=== PATIENT | male | born 1990 | race American Indian/Alaskan Native ===

== ENCOUNTER 2016-09-03 09:11 | Inpatient (IN) | payer MEDICAID, OTHER ==
[2016-09-03 09:15] VITALS: BMI 23.7
[2016-09-03 10:04] LABS: ADD MANUAL DIFF? NO
[2016-09-03 10:09] LABS: BASO # 0.02 K/mm3 (0.0-2.0); BASO % 0.5 % (0.0-3.0); EOS # 0.4 (0.0-0.7); EOS % 9.5 % (1.5-5.0); GRAN # 1.72 (1.4-6.5); GRAN % 46.7 % (50.0-68.0); HEMATOCRIT 45.5 % (42.0-52.0); LYMPH # 1.4 (1.2-3.4); LYMPH % 38.2 % (22.0-35.0); MEAN CELL VOLUME 79.7 fL (80.0-105.0); MEAN CORPUSCULAR HGB CONC 33.8 g/dl (31.0-37.0); MEAN PLATELET VOLUME 10.8 fl (7.0-11.0); MONO # 0.2 (0.1-0.6); MONO % 5.1 % (1.0-6.0); PLATELET COUNT 173 10^3/uL (120.0-450.0); RED CELL DISTRIBUTION WIDTH 14.9 % (11.5-14.5); WHITE BLOOD COUNT 3.7 10^3/ul (4.5-11.0)
[2016-09-03 10:13] LABS: URINE BILIRUBIN NEGATIVE (NEGATIVE); URINE BLOOD TRACE-LYSED (NEGATIVE); URINE GLUCOSE (UA) 500 mg/dL (NEGATIVE); URINE KETONE NEGATIVE (NEGATIVE); URINE LEUKOCYTE ESTERASE NEGATIVE Leu/uL (NEGATIVE); URINE PROTEIN TRACE mg/dL (<30 mg/dL); URINE UROBILINOGEN 0.2 E.U./dL (<1 E.U./dL)
[2016-09-03 10:19] LABS: ALB/GLOB RATIO 1.3 (1.1-1.8); ALKALINE PHOSPHATASE 83 U/L (38-133); ALT/SGPT 34 U/L (7-56); AST/SGOT 27 U/L (15-59); BILIRUBIN,TOTAL 0.7 mg/dL (0.2-1.3); BLOOD UREA NITROGEN 13 mg/dL (7-21); CALCIUM 9.3 mg/dL (8.4-10.5); CARBON DIOXIDE 20 mmol/L (21-33); CHLORIDE 103 mmol/L (98-107); GFR AFRICAN-AMERICAN > 60; GLUCOSE,RANDOM 243 mg/dL (70-110); POTASSIUM 5.4 mmol/L (3.6-5.0); SODIUM 135 mmol/L (132-148); TOTAL PROTEIN 7.8 g/dL (5.8-8.3)
[2016-09-03 10:22] LABS: URINE APPEARANCE CLEAR (CLEAR); URINE COLOR YELLOW (YELLOW)
[2016-09-03 10:26] LABS: URINE BACTERIA FEW (NEG); URINE EPITHELIAL CELLS 0 - 2 /hpf (0-5); URINE RBC 0 - 2 /hpf (0-2); URINE WBC 0 - 2 /hpf (0-6)
--- NOTE | 2016-09-03 10:32 | ED PDOC ---
Arrival/HPI - General Chief Complaint: Seizure Time Seen by Provider: 09/03/16 09:18 Historian: Patient - History of Present Illness Narrative History of Present Illness (Text): 09/03/16 09:20 A 26 year old male, whose past medical history includes asthma and migraine, is brought into the emergency department via EMS after a wittiness seizure. Patient is accompanied by girlfriend who witness the seizure. She states this morning the patient was sleeping woke up to use his inhaler for asthma and than went back to bed. She states about an hour later the patient looked as though he was stretching but then began to convulse and started to foam from the mouth. He then started snoring and was unresponsive. Patient had urinary incontinence but no tongue biting. About 10 minutes after the episodes EMS arrived and where able to arouse to the patient but patient was confused. Currently the patient is at baseline. He states he does smoke marijuana and his last use was yesterday. He denies any other type of drug use. Patient does not have a family history of seizure. He denies any fever, congestion, or any other complaints at this time. PMD: from [place] Time/Duration: 1-3 hours Symptom Onset: Sudden Symptom Course: Resolved Quality: Other Activities at Onset: Rest Context: Home Past Medical History - Provider Review Nursing Documentation Reviewed: Yes - Infectious Disease Hx of Infectious Diseases: None - Cardiac Hx Cardiac Disorders: No - Pulmonary Hx Respiratory Disorders: Yes Hx Asthma: Yes - Neurological Hx Neurological Disorder: No - HEENT Hx HEENT Disorder: No - Renal Hx Renal Disorder: No - Endocrine/Metabolic Hx Endocrine Disorders: No - Hematological/Oncological Hx Blood Disorders: Yes Hx Anemia: Yes - Integumentary Hx Dermatological Disorder: No - Musculoskeletal/Rheumatological Hx Musculoskeletal Disorders: No - Gastrointestinal Hx Gastrointestinal Disorders: No - Genitourinary/Gynecological Hx Genitourinary Disorders: No - Psychiatric Hx Psychophysiologic Disorder: No Hx Substance Use: Yes (weed) - Anesthesia Hx Anesthesia: No Family/Social History - Physician Review Nursing Documentation Reviewed: Yes Family/Social History: Unknown Family HX Smoking Status: Never Smoked Hx Alcohol Use: Yes Frequency of alcohol use: Socially Hx Substance Use: Yes (weed) Allergies/Home Meds Allergies/Adverse Reactions: Allergies nuts Allergy (Uncoded 09/03/16 09:15) ANAPHYLAXIS seafood Allergy (Uncoded 09/03/16 09:15) ANAPHYLAXIS Home Medications: Home Meds Medication Instructions Recorded Confirmed Albuterol 0.042% [Albuterol 0.042% 3 ml IH PRN PRN 09/03/16 09/03/16 Inhal Ashley (1.25mg/3ml) UD] Review of Systems - Physician Review All systems were reviewed & negative as marked: Yes - Review of Systems Constitutional: absent: Fevers ENT: absent: Sinus Congestion, Other (toungue bitting) Genitourinary Male: Other (urinary incontinence ) Neurological: Seizure Physical Exam Vital Signs Reviewed: Yes Vital Signs Temp Pulse Resp BP Pulse Ox 09/03/16 10:40 66 18 120/66 100 09/03/16 09:28 97.4 F L 76 18 115/66 100 Temperature: Afebrile Blood Pressure: Normal Pulse: Regular Respiratory Rate: Normal Appearance: Positive for: Well-Appearing, Non-Toxic, Comfortable Pain Distress: None Mental Status: Positive for: Alert and Oriented X 3 Finger Stick Blood Glucose: 251 - Systems Exam Head: Present: Atraumatic, Normocephalic Pupils: Present: PERRL Extroacular Muscles: Present: EOMI Conjunctiva: Present: Normal Mouth: Present: Moist Mucous Membranes, Normal Tounge Neck: Present: Normal Range of Motion Respiratory/Chest: Present: Clear to Auscultation, Good Air Exchange. No: Respiratory Distress, Accessory Muscle Use Cardiovascular: Present: Regular Rate and Rhythm, Normal S1, S2. No: Murmurs Abdomen: Present: Normal Bowel Sounds. No: Tenderness, Distention, Peritoneal Signs Back: Present: Normal Inspection Upper Extremity: Present: Normal Inspection. No: Cyanosis, Edema Lower Extremity: Present: Normal Inspection. No: Edema Neurological: Present: GCS=15, CN II-XII Intact, Speech Normal, Motor Func Grossly Intact, Normal Sensory Function, Normal Cerebellar Funct Skin: Present: Warm, Dry, Normal Color. No: Rashes Psychiatric: Present: Alert, Oriented x 3, Normal Insight, Normal Concentration Medical Decision Making ED Course and Treatment: 09/03/16 09:20 Impression: A 26 year old male with a seizure. Differential Diagnosis include but are not limited to: new onset seizure secondary to intracranial pathology vs. electrolyte imbalance vs. drug induced Plan: -- EKG -- Head CT -- Labs -- Urinalysis -- Reassess and disposition Progress Notes: EKG: Ordered, reviewed, and independently interpreted the EKG. Rate : 85 BPM Rhythm : NSR Interpretation : early repolarization Comparison : No previous EKG for comparison. 09/03/16 10:[address]: Creator : Seng Mejia MD COMPARISON: None available. FINDINGS: HEMORRHAGE: No intracranial hemorrhage. BRAIN: No mass effect or edema. No atrophy or chronic microvascular ischemic changes. VENTRICLES: Unremarkable. No hydrocephalus. CALVARIUM: Unremarkable. PARANASAL SINUSES: Unremarkable as visualized. No significant inflammatory changes MASTOID AIR CELLS: Unremarkable as visualized. No inflammatory changes. OTHER FINDINGS: None. IMPRESSION: Normal CT of the Head. 09/03/16 11:20 Potassium elevated. Called lab who states it's not hemolyzed. Treated with kayexalate. Case discussed with Dr. Lazarus Hernandez who recommended placing patient on observation and will need an EEG. CT Head negative. Case discussed with Dr. Okeefe, who is covering Hospitalist service, who will place under the service to Med Surg. - Lab Interpretations Lab Results: 09/03/16 10:03 09/03/16 10:03 Lab Results 09/03/16 10:09: Urine Opiates Screen Negative, Urine Methadone Screen Negative, Ur Barbiturates Screen Negative, Ur Phencyclidine Scrn Negative, Ur Amphetamines Screen Negative, U Benzodiazepines Scrn Negative, U Oth Cocaine Metabols Negative, U Cannabinoids Screen Positive H 09/03/16 10:09: Urine Color Yellow, Urine Appearance Clear, Urine pH 6.0, Ur Specific Tilly 1.025, Urine Protein Trace H, Urine Glucose (UA) 500 H, Urine Ketones Negative, Urine Blood Trace-lysed H, Urine Nitrate Negative, Urine Bilirubin Negative, Urine Urobilinogen 0.2, Ur Leukocyte Esterase Negative, Urine RBC 0 - 2, Urine WBC 0 - 2, Ur Epithelial Cells 0 - 2, Urine Bacteria Few 09/03/16 10:03: Alcohol, Quantitative < 10 09/03/16 10:03: Sodium 135, Potassium 5.4 H, Chloride 103, Carbon Dioxide 20 L, Anion Gap 17, BUN 13, Creatinine 1.0, Est GFR ( Amer) > 60, Est GFR (Non- Af Amer) > 60, Random Glucose 243 H, Calcium 9.3, Total Bilirubin 0.7, AST 27, ALT 34, Alkaline Phosphatase 83, Total Protein 7.8, Albumin 4.4, Globulin 3.5, Albumin/Globulin Ratio 1.3 09/03/16 10:03: WBC 3.7 L, RBC 5.71, Hgb 15.4, Hct 45.5, MCV 79.7 L, MCH 27.0, MCHC 33.8, RDW 14.9 H, Plt Count 173, MPV 10.8, Gran % 46.7 L, Lymph % (Auto) 38.2 H, [place]rick % (Auto) 5.1, Eos % (Auto) 9.5 H, Baso % (Auto) 0.5, Gran # 1.72, Lymph # 1.4, Merrick # 0.2, Eos # 0.4, Baso # 0.02 I have reviewed the lab results: Yes - RAD Interpretation Radiology Orders: 09/03/16 09:48 HEAD W/O CONTRAST [CT] Stat - Medication Orders Current Medication Orders: Discontinued Medications Sodium Polystyrene Sulfonate (Kayexalate Oral Susp) 15 gm PO STAT STA Stop: 09/03/16 10:55 Last Admin: 09/03/16 11:20 Dose: 15 gm - Scribe Statement The provider has reviewed the documentation as recorded by the Patricia Jay Provider Letiibe Attestation: All medical record entries made by the Patricia were at my direction and personally dictated by me. I have reviewed the chart and agree that the record accurately reflects my personal performance of the history, physical exam, medical decision making, and the department course for this patient. I have also personally directed, reviewed, and agree with the discharge instructions and disposition. Disposition/Present on Arrival - Present on Arrival Any Indicators Present on Arrival: No History of DVT/PE: No History of Uncontrolled Diabetes: No Urinary Catheter: No History of Decub. Ulcer: No History Surgical Site Infection Following: None - Disposition Have Diagnosis and Disposition been Completed?: Yes Diagnosis: New onset seizure Disposition Time: 11:23 Patient Plan: Admission Condition: FAIR
--- NOTE | 2016-09-03 10:40 | CT ---
PROCEDURE: CT HEAD WITHOUT CONTRAST. HISTORY: new onset sz COMPARISON: None available. TECHNIQUE: Axial computed tomography images were obtained through the head/brain without intravenous contrast. Radiation dose: Total exam DLP = 774 mGy-cm. This CT exam was performed using one or more of the following dose reduction techniques: Automated exposure control, adjustment of the mA and/or kV according to patient size, and/or use of iterative reconstruction technique. FINDINGS: HEMORRHAGE: No intracranial hemorrhage. BRAIN: No mass effect or edema. No atrophy or chronic microvascular ischemic changes. VENTRICLES: Unremarkable. No hydrocephalus. CALVARIUM: Unremarkable. PARANASAL SINUSES: Unremarkable as visualized. No significant inflammatory changes. MASTOID AIR CELLS: Unremarkable as visualized. No inflammatory changes. OTHER FINDINGS: None. IMPRESSION: Normal CT of the Head.
[2016-09-03] MEDS ORDERED: Sod Polystyrene Sulf 15 gm/60 ml Oral Susp PO STA (10:54)
[2016-09-03] MEDS ORDERED: Albuterol 0.042% Inhal Sol (1.25 mg/3 mL) UD IH PRN (12:10)
[2016-09-03 17:12] VITALS: O2SAT 98
--- NOTE | 2016-09-03 18:00 | CON ---
DATE: 09/03/2016 CHIEF COMPLAINT: Seizure. HISTORY OF PRESENT ILLNESS: This is a 26-year-old man with a past medical history of asthma and migr aines who was brought to the hospital for a witnessed seizure by the girlfriend. She stated in the m orning he was sleeping, he woke and looked like he was stretching but he began to convulse and foam at his mouth and had urinary incontinence. No history of meningitis, no history of trauma to th e brain. He said he has been sleep deprived for the past few weeks due to his community service. He does smoke marijuana, which is positive on his U-tox. Currently, no acute events , moving all extremities. PAST MEDICAL HISTORY: Asthma, migraines. REVIEW OF SYSTEMS: A 14-point review of systems is negative except for the HPI. MEDICATIONS: Reviewed via nurses' reconciliation sheet. SOCIAL HISTORY: He smokes marijuana. No ETOH abuse or cigarette smoking. FAMILY HISTORY: Noncontributory. ALLERGIES: ALLERGIC TO NUTS AND SEAFOOD. PHYSICAL EXAMINATION: VITAL SIGNS: Temperature 98.4, pulse rate 64, blood pressure 121/60, respiratory rate 18, oxygen sat uration of 100% on room air. GENERAL: The patient is sitting up in bed in no acute distress. HEENT: Atraumatic, normocephalic. PERRLA. Extraocular muscles intact. NECK: Supple, no JVD, no adenopathy noted. HEART: S1, S2, normal rate and rhythm. No murmurs, rubs, or gallops. ABDOMEN: Soft, nontender, nondistended. Bowel sounds are present. EXTREMITIES: No clubbing, no cyanosis. Peripheral pulses 2+ bilaterally. NEUROLOGIC: The patient is alert, oriented to person, place, month and year. Speech is fluent, with out any errors. Cranial nerves II through XII are intact. MOTOR: Moves all extremities equally. Toes downgoing bilaterally. SENSORY: Light touch, pinprick, proprioception, vibration intact. GAIT: Normal. LABORATORIES: Sodium 135, potassium 5.4, chloride 103, carbon dioxide 20, BUN of 13, creatinine 1. Random glucose 243. ASSESSMENT AND PLAN: This is a 26-year-old man with a history of migraines and a history of asthma w ho had a new onset seizure. His new onset seizure is likely secondary to sleep deprivation rather __ ___. A CAT scan of the head showed no acute intracranial abnormality. At this time, recommend an EE G and MRI of the brain with contrast to assess for any structural abnormalities. Would avoid any AED s at this point and continue with current present medical management. If the MRI of the brain is neg ative and EEG is normal, can follow up as an outpatient. Thank you for this consult. Jay Hernandez MD cc: [id number] TT: 09/03/2016 18:00:09 Confirmation # [id number] Dictation # [id number]
--- NOTE | 2016-09-03 18:49 | CARD ---
APPROVED REPORT EKG Measurement Heart [id number] <Conclusion> Normal sinus rhythm Right atrial enlargement Early repolarization Borderline ECG
--- NOTE | 2016-09-03 21:23 | CP.PCM.HP ---
<Nancy Llamas - Last Filed: 09/03/16 21:53> History of Present Illness - History of Present Illness History of Present Illness: 26 yo M w/ PMHx of asthma and chronic headaches, presents w/witnessed seizure. Girlfriend at bedside reports pt sleeping in bed in morning, when started extending arm, diaphoresis and full body convulsion and foaming at mouth. Patient had urinary incontinence but no tongue biting. Then started snoring and was unresponsive. Ten minutes later, EMS arouse the patient but patient was confused. At current presentation, pt is not confused. He states he does smoke marijuana and smoked last PM. Reports that this is his first seizure episode. Pt denies n/v, numbness, tingling, fever, recent travel. PMHx: asthma and chronic headaches surgeries: denies allergies: NKDA medications: daily use of ventolin social: report social etoh, [facility]. Denies cigarette smoking. denies any other type of drug use. fx: denies seizure hx in fx Present on Admission - Present on Admission Any Indicators Present on Admission: No Review of Systems - Review of Systems All systems: reviewed and no additional remarkable complaints except - Constitutional Constitutional: absent: Chills, Fever - Cardiovascular Cardiovascular: Diaphoresis. absent: Chest Pain - Gastrointestinal Gastrointestinal: absent: Abdominal Pain, Vomiting - Genitourinary Genitourinary: absent: Hematuria, Pyuria Past Patient History - Infectious Disease Hx of Infectious Diseases: None - Past Social History Smoking Status: Never Smoked - CARDIAC Hx Cardiac Disorders: No - PULMONARY Hx Respiratory Disorders: Yes Hx Asthma: Yes - NEUROLOGICAL Hx Neurological Disorder: No - HEENT Hx HEENT Problems: No - RENAL Hx Chronic Kidney Disease: No - ENDOCRINE/METABOLIC Hx Endocrine Disorders: No - HEMATOLOGICAL/ONCOLOGICAL Hx Blood Disorders: Yes Hx Anemia: Yes - INTEGUMENTARY Hx Dermatological Problems: No - MUSCULOSKELETAL/RHEUMATOLOGICAL Hx Falls: No - GASTROINTESTINAL Hx Gastrointestinal Disorders: No - GENITOURINARY/GYNECOLOGICAL Hx Genitourinary Disorders: No - PSYCHIATRIC Hx Psychophysiologic Disorder: No - SURGICAL HISTORY Hx Surgeries: No - ANESTHESIA Hx Anesthesia: No Meds Allergies/Adverse Reactions: Allergies Allergy/AdvReac Type Severity Reaction Status Date / Time nuts Allergy ANAPHYLAXIS Uncoded 09/03/16 09:15 seafood Allergy ANAPHYLAXIS Uncoded 09/03/16 09:15 Physical Exam - Constitutional Appears: Non-toxic, No Acute Distress - Head Exam Head Exam: ATRAUMATIC, NORMOCEPHALIC - Eye Exam Eye Exam: EOMI, Normal appearance - ENT Exam ENT Exam: Mucous Membranes Moist, Normal Exam - Respiratory Exam Respiratory Exam: Clear to Auscultation Bilateral, NORMAL BREATHING PATTERN - Cardiovascular Exam Cardiovascular Exam: +S1, +S2. absent: Tachycardia - Exam External exam: absent: Ecchymosis, Erythema - Extremities Exam Extremities exam: Positive for: normal capillary refill, pedal pulses present - Back Exam Back exam: absent: CVA tenderness (L), CVA tenderness (R) - Neurological Exam Neurological exam: Alert, CN II-XII Intact, Oriented x3 - Expanded Neurological Exam Expanded Upper motor neuron: Babinski Sign: Normal Neuro motor strength exam: Left Upper Extremity: 5, Right Upper Extremity: 5, Left Lower Extremity: 5, Right Lower Extremity: 5 - Skin Skin Exam: Normal Color, Warm Results - Vital Signs Recent Vital Signs: Last Vital Signs Temp 98 F 09/03/16 17:11 Pulse 66 09/03/16 17:11 Resp 18 09/03/16 17:11 BP 131/74 09/03/16 17:11 Pulse Ox 98 09/03/16 17:11 - Labs Result Diagrams: 09/03/16 10:03 09/03/16 10:03 Labs: Laboratory Results - last 24 hr 09/03/16 09/03/16 12:30 12:30 ESR 3 C-React Prot High Sens > 15.00 H Assessment & Plan - Assessment and Plan (Free Text) Plan: 26 yo M w/ PMHx of asthma and chronic headaches, presents w/witnessed seizure. New onset seizure: Head CT negative Neurology consult, help appreciated EEG, and MRI w/and w/o contrast ordered vitals q6, neuro checks q4, fall and aspiration precautions Ucx, Bcx ordered Hyperkalemia: initially 5.4 kayexalate 15 given in ED Monitor PPx: scd <Julian Okeefe - Last Filed: 09/04/16 18:04> Results - Vital Signs Recent Vital Signs: Last Vital Signs Temp 98.1 F 09/04/16 08:00 Pulse 70 09/04/16 08:00 Resp 16 09/04/16 08:00 BP 108/58 L 09/04/16 08:00 Pulse Ox 98 09/04/16 08:00 - Labs Result Diagrams: 09/04/16 07:00 09/04/16 07:00 Labs: Laboratory Results - last 24 hr 09/04/16 09/04/16 07:00 07:00 WBC 6.6 D RBC 5.59 Hgb 14.9 Hct 43.6 MCV 78.0 L MCH 26.7 MCHC 34.2 RDW 14.8 H Plt Count 176 MPV 10.0 Gran % 77.3 H Lymph % (Auto) 16.0 L [place] % (Auto) 5.6 Eos % (Auto) 0.9 L Baso % (Auto) 0.2 Gran # 5.09 Lymph # 1.1 L [place] # 0.4 Eos # 0.1 Baso # 0.01 Sodium 137 Potassium 3.8 Chloride 104 Carbon Dioxide 27 Anion Gap 10 BUN 9 Creatinine 0.8 Est GFR ( Amer) > 60 Est GFR (Non-Af Amer) > 60 Random Glucose 94 Calcium 8.9 Total Bilirubin 1.0 AST 31 ALT 35 Alkaline Phosphatase 79 Total Protein 8.0 Albumin 4.2 Globulin 3.8 Albumin/Globulin Ratio 1.1 Attending/Attestation - Attestation I have personally seen and examined this patient.: Yes I have fully participated in the care of the patient.: Yes I have reviewed all pertinent clinical information: Yes Notes (Text): 09/04/16 18:03 Patient seen and examined in ED with the resident. Witnessed seizure episode by the . Vitals, labs, Radiology report and ED notes report. Maintain seizure precautions, fall precautions. Neurology consult. Agree with the plan of care outlined by the resident.
[2016-09-04 07:59] LABS: ADD MANUAL DIFF? NO
[2016-09-04 08:03] LABS: BASO # 0.01 K/mm3 (0.0-2.0); BASO % 0.2 % (0.0-3.0); EOS # 0.1 (0.0-0.7); EOS % 0.9 % (1.5-5.0); GRAN # 5.09 (1.4-6.5); GRAN % 77.3 % (50.0-68.0); HEMATOCRIT 43.6 % (42.0-52.0); LYMPH # 1.1 (1.2-3.4); MEAN CORPUSCULAR HEMOGLOBIN 26.7 pg (25.0-35.0); MEAN CORPUSCULAR HGB CONC 34.2 g/dl (31.0-37.0); MONO # 0.4 (0.1-0.6); MONO % 5.6 % (1.0-6.0); PLATELET COUNT 176 10^3/uL (120.0-450.0); RED CELL DISTRIBUTION WIDTH 14.8 % (11.5-14.5); WHITE BLOOD COUNT 6.6 10^3/ul (4.5-11.0)
[2016-09-04 08:12] LABS: ALB/GLOB RATIO 1.1 (1.1-1.8); ALKALINE PHOSPHATASE 79 U/L (38-133); ALT/SGPT 35 U/L (7-56); AST/SGOT 31 U/L (15-59); BLOOD UREA NITROGEN 9 mg/dL (7-21); CALCIUM 8.9 mg/dL (8.4-10.5); CARBON DIOXIDE 27 mmol/L (21-33); CHLORIDE 104 mmol/L (98-107); GFR AFRICAN-AMERICAN > 60; GLUCOSE,RANDOM 94 mg/dL (70-110); POTASSIUM 3.8 mmol/L (3.6-5.0); SODIUM 137 mmol/L (132-148)
[2016-09-04 09:05] VITALS: BP 108/58; PULSE 70; RESP 16; TEMP 98.1
[2016-09-04] MEDS ORDERED: Gadodiamide 287 MG/ML VIAL (15ML) IV ONE (13:15)
--- NOTE | 2016-09-04 14:16 | MRI ---
PROCEDURE: MRI BRAIN WITH AND WITHOUT CONTRAST HISTORY: New onset seizures COMPARISON: Noncontrast head CT from 09/03/2016 TECHNIQUE: Multiplanar, multisequence MR images of the brain were obtained with and without intravenous contrast enhancement. 15 mL gadolinium was injected intravenously. FINDINGS: HEMORRHAGE: None DWI: No evidence of an acute or early subacute infarction. BRAIN PARENCHYMA: Bowles-white matter differentiation is preserved. There is no mass, mass effect or abnormal extra-axial fluid collection ENHANCEMENT: No abnormal intracranial enhancement. VENTRICLES: The ventricles are normal in size, shape and configuration. CRANIUM: There is normal bone marrow signal pattern. ORBITS: Grossly unremarkable. PARANASAL SINUSES/MASTOIDS: There is mild mucosal thickening in the left frontal sinus and ethmoid air cells. The remaining included paranasal sinuses and mastoid air cells are predominantly clear. VASCULAR SYSTEM: There are normal signal voids in the larger intracranial arteries. OTHER FINDINGS: None . IMPRESSION: No acute intracranial abnormality. Essentially normal MRI of the brain without and with intravenous contrast.
--- NOTE | 2016-09-04 19:19 | CP.PCM.DIS ---
<Braxton Palacio - Last Filed: 09/04/16 19:39> Provider - Provider Date of Admission: 09/03/16 11:02 Attending physician: Josesito Araujo MD Primary care physician: Demetrio Profile Required Consults: Neuro: Dr. Lazarus Hernandez Time Spent in preparation of Discharge (in minutes): 30 Diagnosis - Discharge Diagnosis (1) New onset seizure Status: Acute Priority: High Hospital Course - Lab Results Lab Results: Micro Results 09/03/16 12:44 Blood Blood Culture - Preliminary NO GROWTH AFTER 24 HOURS Most Recent Lab Values WBC 6.6 10^3/ul (4.5-11.0) D 09/04/16 07:00 RBC 5.59 10^6/uL (3.5-6.1) 09/04/16 07:00 Hgb 14.9 gm/dL (14.0-18.0) 09/04/16 07:00 Hct 43.6 % (42.0-52.0) 09/04/16 07:00 MCV 78.0 fL (80.0-105.0) L 09/04/16 07:00 MCH 26.7 pg (25.0-35.0) 09/04/16 07:00 MCHC 34.2 g/dl (31.0-37.0) 09/04/16 07:00 RDW 14.8 % (11.5-14.5) H 09/04/16 07:00 Plt Count 176 10^3/uL (120.0-450.0) 09/04/16 07:00 MPV 10.0 fl (7.0-11.0) 09/04/16 07:00 Gran % 77.3 % (50.0-68.0) H 09/04/16 07:00 Lymph % (Auto) 16.0 % (22.0-35.0) L 09/04/16 07:00 Payette % (Auto) 5.6 % (1.0-6.0) 09/04/16 07:00 Eos % (Auto) 0.9 % (1.5-5.0) L 09/04/16 07:00 Baso % (Auto) 0.2 % (0.0-3.0) 09/04/16 07:00 Gran # 5.09 (1.4-6.5) 09/04/16 07:00 Lymph # 1.1 (1.2-3.4) L 09/04/16 07:00 Payette # 0.4 (0.1-0.6) 09/04/16 07:00 Eos # 0.1 (0.0-0.7) 09/04/16 07:00 Baso # 0.01 K/mm3 (0.0-2.0) 09/04/16 07:00 ESR 3 mm/hr (0.0-15.0) 09/03/16 12:30 Sodium 137 mmol/L (132-148) 09/04/16 07:00 Potassium 3.8 mmol/L (3.6-5.0) 09/04/16 07:00 Chloride 104 mmol/L (98-107) 09/04/16 07:00 Carbon Dioxide 27 mmol/L (21-33) 09/04/16 07:00 Anion Gap 10 (10-20) 09/04/16 07:00 BUN 9 mg/dL (7-21) 09/04/16 07:00 Creatinine 0.8 mg/dL (0.5-1.4) 09/04/16 07:00 Est GFR ( Amer) > 60 09/04/16 07:00 Est GFR (Non-Af Amer) > 60 09/04/16 07:00 Random Glucose 94 mg/dL (70-110) 09/04/16 07:00 Calcium 8.9 mg/dL (8.4-10.5) 09/04/16 07:00 Total Bilirubin 1.0 mg/dL (0.2-1.3) 09/04/16 07:00 AST 31 U/L (15-59) 09/04/16 07:00 ALT 35 U/L (7-56) 09/04/16 07:00 Alkaline Phosphatase 79 U/L (38-133) 09/04/16 07:00 C-React Prot High Sens > 15.00 mg/L (1.00-3.00) H 09/03/16 12:30 Total Protein 8.0 g/dL (5.8-8.3) 09/04/16 07:00 Albumin 4.2 g/dL (3.0-4.8) 09/04/16 07:00 Globulin 3.8 gm/dL 09/04/16 07:00 Albumin/Globulin Ratio 1.1 (1.1-1.8) 09/04/16 07:00 Urine Color Yellow (YELLOW) 09/03/16 10:09 Urine Appearance Clear (CLEAR) 09/03/16 10:09 Urine pH 6.0 (4.7-8.0) 09/03/16 10:09 Ur Specific Wayne 1.025 (1.005-1.035) 09/03/16 10:09 Urine Protein Trace mg/dL (<30 mg/dL) H 09/03/16 10:09 Urine Glucose (UA) 500 mg/dL (NEGATIVE) H 09/03/16 10:09 Urine Ketones Negative mg/dL (NEGATIVE) 09/03/16 10:09 Urine Blood Trace-lysed (NEGATIVE) H 09/03/16 10:09 Urine Nitrate Negative (NEGATIVE) 09/03/16 10:09 Urine Bilirubin Negative (NEGATIVE) 09/03/16 10:09 Urine Urobilinogen 0.2 E.U./dL (<1 E.U./dL) 09/03/16 10:09 Ur Leukocyte Esterase Negative Laya/uL (NEGATIVE) 09/03/16 10:09 Urine RBC 0 - 2 /hpf (0-2) 09/03/16 10:09 Urine WBC 0 - 2 /hpf (0-6) 09/03/16 10:09 Ur Epithelial Cells 0 - 2 /hpf (0-5) 09/03/16 10:09 Urine Bacteria Few (NEG) 09/03/16 10:09 Urine Opiates Screen Negative (NEGATIVE) 09/03/16 10:09 Urine Methadone Screen Negative (NEGATIVE) 09/03/16 10:09 Ur Barbiturates Screen Negative (NEGATIVE) 09/03/16 10:09 Ur Phencyclidine Scrn Negative (NEGATIVE) 09/03/16 10:09 Ur Amphetamines Screen Negative (NEGATIVE) 09/03/16 10:09 U Benzodiazepines Scrn Negative (NEGATIVE) 09/03/16 10:09 U Oth Cocaine Metabols Negative (NEGATIVE) 09/03/16 10:09 U Cannabinoids Screen Positive (NEGATIVE) H 09/03/16 10:09 Alcohol, Quantitative < 10 mg/dL (0-10) 09/03/16 10:03 - Hospital Course Hospital Course: This is a 26 yo AA M with PMH of Asthma, Eczema, and headache who was brought in by ambulance to [facility] after first occurrence seizure at home witnessed by significant other. During this admission, patient remained stable, and did not exhibit any more seizure or seizure-like activity. He first remembered regaining consciousness in the ambulance on the way to the hospital, and had excellent recall since that time. During this admission, patient was seen by Neurology. Due to his normal head CT, brain MRI, and EEG, patient was cleared for discharge by Neuro and instructed to follow up with Neurology within 1 week of discharge. No additional medications or scripts were indicated by Neuro. 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 He was also instructed to avoid further marijuana use. Patient expressed understanding and agreement with these instructions. He was then given an opportunity to ask any questions, which were answered to his satisfaction. He was then discharged. - Date & Time of H&P Date of H&P: 09/03/16 Time of H&P: 21:22 Discharge Exam - Head Exam Head Exam: ATRAUMATIC, NORMAL INSPECTION, NORMOCEPHALIC - Eye Exam Eye Exam: EOMI, Normal appearance. absent: Conjunctival injection, Scleral icterus Pupil Exam: absent: Irregular, Unequal - ENT Exam ENT Exam: Mucous Membranes Moist - Neck Exam Neck exam: Full Rom - Respiratory Exam Respiratory Exam: Clear to PA & Lateral, NORMAL BREATHING PATTERN, UNREMARKABLE. absent: Accessory Muscle Use, Chest Wall Tenderness, Decreased Breath Sounds, Prolonged Expiratory Phase, Rales, Rhonchi, Wheezes, Respiratory Distress - Cardiovascular Exam Cardiovascular Exam: REGULAR RHYTHM, RRR, +S1, +S2. absent: Bradycardia, Tachycardia, Irregular Rhythm, JVD, +S4 - GI/Abdominal Exam GI & Abdominal Exam: Normal Bowel Sounds, Soft, Unremarkable. absent: Diminished Bowel Sounds, Distended, Firm, Hyperactive Bowel Sounds, Hypoactive Bowel Sounds, Rigid, Tenderness - Extremities Exam Extremities exam: normal capillary refill, normal inspection, pedal pulses present - Neurological Exam Neurological exam: Alert, Normal Gait, Oriented x3 - Psychiatric Exam Psychiatric exam: Normal Affect, Normal Mood - Skin Skin Exam: Dry, Intact, Normal Color, Warm Discharge Plan - Follow Up Plan Condition: FAIR Disposition: HOME/ ROUTINE Instructions: Recurrent Seizures in Adults (DC), New-Onset Seizure in Adults ( DC), Fall Prevention (DC) Additional Instructions: You have been discharged from [facility] If you have any further episodes of seizures please go to the nearest emergency room as soon as possible. 1. You are not able to drive for 90 days or until cleared by Neurology. 2. You will have to follow up with Dr Hernandez within 1 weeks time. 3. [facility] clinic f/u 1 week . Referrals: Jay Hernandez MD [Staff Provider] - <Josesito Araujo - Last Filed: 09/05/16 06:53> Provider - Provider Date of Admission: 09/03/16 11:02 Attending physician: Josesito Araujo MD Primary care physician: Demetrio Cervantes Required Time Spent in preparation of Discharge (in minutes): 35 Hospital Course - Lab Results Lab Results: Micro Results 09/03/16 12:44 Blood Blood Culture - Preliminary NO GROWTH AFTER 24 HOURS Most Recent Lab Values WBC 6.6 10^3/ul (4.5-11.0) D 09/04/16 07:00 RBC 5.59 10^6/uL (3.5-6.1) 09/04/16 07:00 Hgb 14.9 gm/dL (14.0-18.0) 09/04/16 07:00 Hct 43.6 % (42.0-52.0) 09/04/16 07:00 MCV 78.0 fL (80.0-105.0) L 09/04/16 07:00 MCH 26.7 pg (25.0-35.0) 09/04/16 07:00 MCHC 34.2 g/dl (31.0-37.0) 09/04/16 07:00 RDW 14.8 % (11.5-14.5) H 09/04/16 07:00 Plt Count 176 10^3/uL (120.0-450.0) 09/04/16 07:00 MPV 10.0 fl (7.0-11.0) 09/04/16 07:00 Gran % 77.3 % (50.0-68.0) H 09/04/16 07:00 Lymph % (Auto) 16.0 % (22.0-35.0) L 09/04/16 07:00 Payette % (Auto) 5.6 % (1.0-6.0) 09/04/16 07:00 Eos % (Auto) 0.9 % (1.5-5.0) L 09/04/16 07:00 Baso % (Auto) 0.2 % (0.0-3.0) 09/04/16 07:00 Gran # 5.09 (1.4-6.5) 09/04/16 07:00 Lymph # 1.1 (1.2-3.4) L 09/04/16 07:00 Payette # 0.4 (0.1-0.6) 09/04/16 07:00 Eos # 0.1 (0.0-0.7) 09/04/16 07:00 Baso # 0.01 K/mm3 (0.0-2.0) 09/04/16 07:00 ESR 3 mm/hr (0.0-15.0) 09/03/16 12:30 Sodium 137 mmol/L (132-148) 09/04/16 07:00 Potassium 3.8 mmol/L (3.6-5.0) 09/04/16 07:00 Chloride 104 mmol/L (98-107) 09/04/16 07:00 Carbon Dioxide 27 mmol/L (21-33) 09/04/16 07:00 Anion Gap 10 (10-20) 09/04/16 07:00 BUN 9 mg/dL (7-21) 09/04/16 07:00 Creatinine 0.8 mg/dL (0.5-1.4) 09/04/16 07:00 Est GFR ( Amer) > 60 09/04/16 07:00 Est GFR (Non-Af Amer) > 60 09/04/16 07:00 Random Glucose 94 mg/dL (70-110) 09/04/16 07:00 Calcium 8.9 mg/dL (8.4-10.5) 09/04/16 07:00 Total Bilirubin 1.0 mg/dL (0.2-1.3) 09/04/16 07:00 AST 31 U/L (15-59) 09/04/16 07:00 ALT 35 U/L (7-56) 09/04/16 07:00 Alkaline Phosphatase 79 U/L (38-133) 09/04/16 07:00 C-React Prot High Sens > 15.00 mg/L (1.00-3.00) H 09/03/16 12:30 Total Protein 8.0 g/dL (5.8-8.3) 09/04/16 07:00 Albumin 4.2 g/dL (3.0-4.8) 09/04/16 07:00 Globulin 3.8 gm/dL 09/04/16 07:00 Albumin/Globulin Ratio 1.1 (1.1-1.8) 09/04/16 07:00 Urine Color Yellow (YELLOW) 09/03/16 10:09 Urine Appearance Clear (CLEAR) 09/03/16 10:09 Urine pH 6.0 (4.7-8.0) 09/03/16 10:09 Ur Specific Wayne 1.025 (1.005-1.035) 09/03/16 10:09 Urine Protein Trace mg/dL (<30 mg/dL) H 09/03/16 10:09 Urine Glucose (UA) 500 mg/dL (NEGATIVE) H 09/03/16 10:09 Urine Ketones Negative mg/dL (NEGATIVE) 09/03/16 10:09 Urine Blood Trace-lysed (NEGATIVE) H 09/03/16 10:09 Urine Nitrate Negative (NEGATIVE) 09/03/16 10:09 Urine Bilirubin Negative (NEGATIVE) 09/03/16 10:09 Urine Urobilinogen 0.2 E.U./dL (<1 E.U./dL) 09/03/16 10:09 Ur Leukocyte Esterase Negative Laya/uL (NEGATIVE) 09/03/16 10:09 Urine RBC 0 - 2 /hpf (0-2) 09/03/16 10:09 Urine WBC 0 - 2 /hpf (0-6) 09/03/16 10:09 Ur Epithelial Cells 0 - 2 /hpf (0-5) 09/03/16 10:09 Urine Bacteria Few (NEG) 09/03/16 10:09 Urine Opiates Screen Negative (NEGATIVE) 09/03/16 10:09 Urine Methadone Screen Negative (NEGATIVE) 09/03/16 10:09 Ur Barbiturates Screen Negative (NEGATIVE) 09/03/16 10:09 Ur Phencyclidine Scrn Negative (NEGATIVE) 09/03/16 10:09 Ur Amphetamines Screen Negative (NEGATIVE) 09/03/16 10:09 U Benzodiazepines Scrn Negative (NEGATIVE) 09/03/16 10:09 U Oth Cocaine Metabols Negative (NEGATIVE) 09/03/16 10:09 U Cannabinoids Screen Positive (NEGATIVE) H 09/03/16 10:09 Alcohol, Quantitative < 10 mg/dL (0-10) 09/03/16 10:03 Attending/Attestation - Attestation I have personally seen and examined this patient.: Yes I have fully participated in the care of the patient.: Yes I have reviewed all pertinent clinical information, including history, physical exam and plan: Yes Notes (Text): 09/04/16 26 year old male with past medical history of asthma who presented after a seizure episode witnessed by his girlfriend. He was admitted for overnight observation and remained seizuer free while in hospital. He had a CT head and MRI brain which were negative. He also had EEG done today. He was seen by neurology who cleared patient for discharge. Did not recommend any antiepileptics at this time and recommended no driving for at least 90 days. Patient states he does not have a license and does not drive. He is discharged home to follow up with pmd or at [facility]. Follow up with neurology, Dr. Hernandez. Instructed no driving for at least 30 days or until cleared by neurologist. Counselled on avoiding substances, including marijuana. Josesito Araujo MD Hospitalist.
--- NOTE | 2016-09-05 20:12 | EEG ---
DATE: 09/03/2016 CONDITION OF THE RECORDING: Awake, drowsy. HISTORY: Seizure. PAST MEDICAL HISTORY: Drug use, asthma and chronic headaches. MEDICATIONS: Ativan. DESCRIPTION: Background activity of this tracing was composed of 9-10 cycles per second alpha rhythm . Small amount of beta activity of 16-20 cycles per second was noted in the tracing. Theta activity of 5-7 cycles per second was noted in the tracing. Drowsiness was composed of mixed beta and theta activity. Photic stimulation did not change the record. No paroxysmal activity was seen in the [address]. IMPRESSION: Normal awake, drowsy electroencephalography. Ming Hernandez MD cc: [id number] TT: 09/05/2016 20:11:40 Confirmation # [id number] Dictation # [id number] mn
== END 2016-09-04 19:12 | disposition home or self-care (01) | DRG 889 ==
LOC: EDBD 09:11 → ED 09:11 → EROBSV 11:02 → OBSVTOIN 11:02 → ERH 11:51 → 5RSO 12:39
PROVIDERS: ADMIT Internal Medicine; ATTEND Internal Medicine
DX: R56.9 Unspecified convulsions (principal); R32 Unspecified urinary incontinence; D64.9 Anemia, unspecified; F12.90 Cannabis use, unspecified, uncomplicated; J45.909 Unspecified asthma, uncomplicated; Z72.820 Sleep deprivation; G43.909 Migraine, unspecified, not intractable, without status migrainosus; Z87.892 Personal history of anaphylaxis; Z91.018 Allergy to other foods; Z91.013 Allergy to seafood

== ENCOUNTER 2016-11-28 11:39 | Emergency (ER) | payer MEDICAID ==
[2016-11-28 11:40] VITALS: BMI 23.7
[2016-11-28 11:46] VITALS: TEMP 97.8
[2016-11-28] MEDS ORDERED: levETIRAcetam 1,000 MG in Sodium Chloride 0.9% 100 ML IV STA (11:52)
--- NOTE | 2016-11-28 11:57 | ED PDOC ---
Arrival/HPI - General Chief Complaint: Seizure Time Seen by Provider: 11/28/16 11:45 Historian: Patient - History of Present Illness Narrative History of Present Illness (Text): 11/28/16 11:55 A 26 year old male, whose past medical history includes asthma and 1 previous seizure episode on Keppra, was brought into the emergency department by EMS for witnessed seizure this morning. As per girlfriend, patient was in bed this morning woke up to use his inhaler and went back to sleep. Later in the morning patient while unresponsive, began shaking significantly with foam in his mouth, similar to previous seizure. On evaluation, patient is slightly drowsy but able to answer questions. Patient denies any injuries, head trauma, focal weakness, headache, dizziness, vision changes, tongue biting, fever, chills, nausea, vomiting, abdominal pain, urinary or bowel incontinence, chest pain, shortness of breath, cough or any other complaints. Patient has been noncompliant with his keppra. Neurologist: Dr. Hernandez Time/Duration: Prior to Arrival Quality: Other Context: Home Past Medical History - Provider Review Nursing Documentation Reviewed: Yes - Infectious Disease Hx of Infectious Diseases: None - Cardiac Hx Cardiac Disorders: No - Pulmonary Hx Respiratory Disorders: Yes Hx Asthma: Yes - Neurological Hx Neurological Disorder: No Hx Seizures: Yes - HEENT Hx HEENT Disorder: No - Renal Hx Renal Disorder: No - Endocrine/Metabolic Hx Endocrine Disorders: No - Hematological/Oncological Hx Blood Disorders: Yes Hx Anemia: Yes - Integumentary Hx Dermatological Disorder: No - Musculoskeletal/Rheumatological Hx Falls: No - Gastrointestinal Hx Gastrointestinal Disorders: No - Genitourinary/Gynecological Hx Genitourinary Disorders: No - Psychiatric Hx Psychophysiologic Disorder: No Hx Substance Use: Yes (weed) - Anesthesia Hx Anesthesia: No Family/Social History - Physician Review Nursing Documentation Reviewed: Yes Family/Social History: No Known Family HX Smoking Status: Current Some Days Smoker Hx Alcohol Use: Yes (social) Frequency of alcohol use: Socially Hx Substance Use: Yes (weed) Allergies/Home Meds Allergies/Adverse Reactions: Allergies nuts Allergy (Uncoded 09/03/16 09:15) ANAPHYLAXIS seafood Allergy (Uncoded 09/03/16 09:15) ANAPHYLAXIS Home Medications: Home Meds Medication Instructions Recorded Confirmed levETIRAcetam [Keppra] 250 mg PO BID 11/28/16 11/28/16 Review of Systems - Physician Review All systems were reviewed & negative as marked: Yes - Review of Systems Constitutional: absent: Fevers, Night Sweats Eyes: absent: Vision Changes Respiratory: absent: SOB, Cough Cardiovascular: absent: Chest Pain Gastrointestinal: absent: Abdominal Pain, Nausea, Vomiting Genitourinary Male: absent: Urinary Output Changes Neurological: Seizure. absent: Headache, Dizziness, Focal Weakness Physical Exam Vital Signs Reviewed: Yes Vital Signs Temp Pulse Resp BP Pulse Ox 11/28/16 11:40 97.8 F 88 18 118/62 94 L Temperature: Afebrile Blood Pressure: Normal Pulse: Regular Respiratory Rate: Normal Appearance: Positive for: Well-Appearing, Non-Toxic, Comfortable, Other ( male) Pain Distress: None Mental Status: Positive for: Alert and Oriented X 3, other (mildly drowsy) Finger Stick Blood Glucose: 79 - Systems Exam Head: Present: Atraumatic, Normocephalic Pupils: Present: PERRL Extroacular Muscles: Present: EOMI Conjunctiva: Present: Normal Mouth: Present: Moist Mucous Membranes Pharnyx: No: ERYTHEMA, EXUDATE, TONSILS ENLARGED Neck: Present: Normal Range of Motion Respiratory/Chest: Present: Good Air Exchange, Wheezes (Mild wheezing in left lung ). No: Respiratory Distress, Accessory Muscle Use Cardiovascular: Present: Regular Rate and Rhythm, Normal S1, S2. No: Murmurs Abdomen: Present: Normal Bowel Sounds. No: Tenderness, Distention, Peritoneal Signs Back: Present: Normal Inspection Upper Extremity: Present: Normal Inspection. No: Cyanosis, Edema Lower Extremity: Present: Normal Inspection. No: Edema Neurological: Present: GCS=15, CN II-XII Intact, Speech Normal, Motor Func Grossly Intact, Normal Sensory Function, Normal Cerebellar Funct, Gait Normal, Memory Normal Skin: Present: Warm, Dry, Normal Color. No: Rashes Psychiatric: Present: Alert, Oriented x 3, Normal Insight, Normal Concentration Medical Decision Making ED Course and Treatment: 11/28/16 11:55 Impression: A 26 year old male brought in after seizure. Plan: -- Labs -- EKG -- Keppra, Xopenex and Solumedrol -- Reassess and disposition Progress Notes: EKG shows NSR at 80 BPM with normal intervals, normal axis, no ST/T changes. Interpreted by me. 11/28/16 13:54 Patient with described seizure with recent history of newly-diagnosed seizures, supposed to be on keppra but admits to noncompliance. Labs here with mild acidosis, likely related to seizure. Exam with no focal neuro findings or complaints. No trauma. Patient was loaded with keppra, which he already has at home. Patient also with wheezing, which cleared with a neb and started on steroids. At this time, his lungs are clear and he is fully awake, alert, and oriented x 3 with normal mental status and gait - ok for d/c to f/u his neurologist. - Lab Interpretations Lab Results: 11/28/16 11:50 11/28/16 11:50 Lab Results 11/28/16 11:50: Sodium 141, Potassium 4.8, Chloride 106, Carbon Dioxide 17 L, Anion Gap 23 H, BUN 10, Creatinine 1.0, Est GFR ( Amer) > 60, Est GFR ( Non-Af Amer) > 60, Random Glucose 103, Calcium 9.4, Total Bilirubin 1.0, AST 28 , ALT 34, Alkaline Phosphatase 84, Total Protein 7.9, Albumin 4.7, Globulin 3.2 , Albumin/Globulin Ratio 1.5, Lipase 118 11/28/16 11:50: WBC 4.4 L D, RBC 5.73, Hgb 15.6, Hct 46.1, MCV 80.5, MCH 27.2, MCHC 33.8, RDW 14.9 H, Plt Count 175, MPV 9.9, Gran % 47.2 L, Lymph % (Auto) 38.9 H, Sterling % (Auto) 7.3 H, Eos % (Auto) 6.4 H, Baso % (Auto) 0.2, Gran # 2.06 , Lymph # 1.7, Sterling # 0.3, Eos # 0.3, Baso # 0.01 I have reviewed the lab results: Yes - Medication Orders Current Medication Orders: Discontinued Medications Levetiracetam 1,000 mg/ Sodium (Chloride) 110 mls @ 440 mls/hr IV ONCE STA Stop: 11/28/16 12:06 Last Admin: 11/28/16 12:07 Dose: 440 mls/hr Ibuprofen (Motrin Tab) 600 mg PO STAT STA Stop: 11/28/16 13:40 Levalbuterol HCl (Xopenex) 1.25 mg IH STAT STA Stop: 11/28/16 12:16 Last Admin: 11/28/16 12:26 Dose: 1.25 mg Methylprednisolone (Solu-Medrol) 125 mg IVP STAT STA Stop: 11/28/16 12:16 Last Admin: 11/28/16 12:26 Dose: 125 mg - Scribe Statement The provider has reviewed the documentation as recorded by the Patricia Alegria Provider Patricia Attestation: All medical record entries made by the Patricia were at my direction and personally dictated by me. I have reviewed the chart and agree that the record accurately reflects my personal performance of the history, physical exam, medical decision making, and the department course for this patient. I have also personally directed, reviewed, and agree with the discharge instructions and disposition. Disposition/Present on Arrival - Present on Arrival Any Indicators Present on Arrival: No History of DVT/PE: No History of Uncontrolled Diabetes: No Urinary Catheter: No History of Decub. Ulcer: No History Surgical Site Infection Following: None - Disposition Have Diagnosis and Disposition been Completed?: Yes Diagnosis: Seizure, Asthma attack Disposition: HOME/ ROUTINE Disposition Time: 13:50 Patient Plan: Discharge Condition: GOOD Discharge Instructions (ExitCare): Asthma (ED), Recurrent Seizures in Adults ( ED) Additional Instructions: Make sure you take your keppra as prescribed. Also use the prednisone and albuterol as prescribed. Avoid any marijuana use (or any other drug use). Follow up with your neurologist. Return to the emergency department if any new concerning symptoms. Prescriptions: Albuterol HFA [Ventolin HFA 90 mcg/actuation (8 g)] 2 puff IH Q4H #1 inhaler predniSONE [Prednisone] 2 tab PO DAILY #6 tab Referrals: Jay Hernandez MD [Staff Provider] - Follow up with primary Forms: [employer] ([place])
[2016-11-28 12:05] LABS: BASO # 0.01 K/mm3 (0.0-2.0); BASO % 0.2 % (0.0-3.0); EOS # 0.3 (0.0-0.7); EOS % 6.4 % (1.5-5.0); GRAN # 2.06 (1.4-6.5); GRAN % 47.2 % (50.0-68.0); HEMATOCRIT 46.1 % (42.0-52.0); LYMPH # 1.7 (1.2-3.4); LYMPH % 38.9 % (22.0-35.0); MEAN CELL VOLUME 80.5 fl (80.0-105.0); MEAN CORPUSCULAR HEMOGLOBIN 27.2 pg (25.0-35.0); MEAN CORPUSCULAR HGB CONC 33.8 g/dl (31.0-37.0); MEAN PLATELET VOLUME 9.9 fl (7.0-11.0); MONO # 0.3 (0.1-0.6); MONO % 7.3 % (1.0-6.0); RED CELL DISTRIBUTION WIDTH 14.9 % (11.5-14.5); WHITE BLOOD COUNT 4.4 10^3/ul (4.5-11.0)
[2016-11-28 12:15] LABS: ALB/GLOB RATIO 1.5 (1.1-1.8); ALKALINE PHOSPHATASE 84 U/L (38-133); ALT/SGPT 34 U/L (7-56); AST/SGOT 28 U/L (15-59); BLOOD UREA NITROGEN 10 mg/dL (7-21); CALCIUM 9.4 mg/dL (8.4-10.5); CARBON DIOXIDE 17 mmol/L (21-33); CHLORIDE 106 mmol/L (98-107); GFR AFRICAN-AMERICAN > 60; GLUCOSE,RANDOM 103 mg/dL (70-110); LIPASE 118 U/L (23-300); POTASSIUM 4.8 mmol/L (3.6-5.0); SODIUM 141 mmol/L (132-148); TOTAL PROTEIN 7.9 g/dL (5.8-8.3)
[2016-11-28] MEDS ORDERED: Levalbuterol 1.25 MG/3 ML Inhal Soln UD IH STA (12:15)
[2016-11-28 14:15] VITALS: BP 124/76; PULSE 76; RESP 16; O2SAT 98
--- NOTE | 2016-11-28 17:51 | CARD ---
APPROVED REPORT EKG Measurement Heart [id number] <Conclusion> Normal sinus rhythm with sinus arrhythmia Early repolarization Normal ECG
== END 2016-11-28 14:15 | disposition home or self-care (01) ==
LOC: ED 11:39 → EDBD 11:39 → ED 14:15
DX: J45.909 Unspecified asthma, uncomplicated (principal); R56.9 Unspecified convulsions; D64.9 Anemia, unspecified; F17.210 Nicotine dependence, cigarettes, uncomplicated
CPT/HCPCS: 80053; 83690; 85025; 93005; 96374; 99285; J1953; J2930